=== PATIENT | male | born 1980 | race Caucasian/White ===

== ENCOUNTER 2018-12-28 14:55 | Inpatient (IN) | payer MEDICAID ==
[~2018-12-28] VITALS: Ht 165.1 cm; Wt 77.1 kg
[2018-12-28 15:15] VITALS: Ht 165.1 cm; Wt 77.1 kg
[2018-12-28 15:48] LABS: BASOPHIL % 0.3 % (0-2); PLATELET COUNT 178 x10^3mcL (130-400); RED CELL DISTRIBUTION WIDTH 13.4 % (11.5-14.5)
[2018-12-28 16:03] LABS: CALCIUM 7.9 mg/dL (8.5-10.1); CARBON DIOXIDE 24.6 mmol/L (21-32); CHLORIDE SERUM 104 mmol/L (98-107); CREATININE SERUM 1.3 mg/dL (0.7-1.3); GFR1 > 60 mL/min; POTASSIUM SERUM 3.9 mmol/L (3.5-5.1); SODIUM SERUM 140 mmol/L (136-145)
[2018-12-28 16:08] LABS: ALBUMIN 3.5 g/dL (3.4-5.0); ALKALINE PHOSPHATASE 99 U/L (46-116); ALT/SGPT 58 U/L (16-63); AST/SGOT 67 U/L (15-37); BILIRUBIN TOTAL 0.3 mg/dL (0.20-1.00); TOTAL PROTEIN, SERUM 7.3 g/dL (6.4-8.2)
[2018-12-28 16:20] LABS: GLUCOSE SERUM 197 mg/dL (74-106)
[2018-12-28 16:25] LABS: AMYLASE 207 U/L (25-115)
[2018-12-28 17:00] LABS: LIPASE 2216 IU/L (73-393)
[2018-12-28 18:38] LABS: CHOLESTEROL/HDL RATIO 13.8
[2018-12-28 20:03] VITALS: BP 138/85
[2018-12-29 05:22] VITALS: BP 104/64
[2018-12-29 06:29] LABS: BASOPHIL % 0.2 % (0-2); PLATELET COUNT 176 x10^3mcL (130-400); RED CELL DISTRIBUTION WIDTH 13.3 % (11.5-14.5)
[2018-12-29 06:38] LABS: CARBON DIOXIDE 28.2 mmol/L (21-32); CHLORIDE SERUM 109 mmol/L (98-107); CREATININE SERUM 0.7 mg/dL (0.7-1.3); GFR1 > 60 mL/min; GLUCOSE SERUM 113 mg/dL (74-106); PHOSPHOROUS 3.5 mg/dL (2.5-4.9); POTASSIUM SERUM 4.7 mmol/L (3.5-5.1); SODIUM SERUM 144 mmol/L (136-145)
[2018-12-29 09:10] VITALS: BP 109/68
[2018-12-29] MEDS ORDERED: LOP600 PO (13:04)
[2018-12-29] MEDS ORDERED: GEMFIBROZIL600 MG PO (13:45)
[2018-12-29] MEDS ORDERED: LIPI20 PO (13:47)
== END 2018-12-29 15:00 | disposition home or self-care (01) | DRG 423 ==
LOC: ED 14:55 → MU 18:01
PROVIDERS: Emergency Medicine; ADMIT General Practice
DX: E78.1 Pure hyperglyceridemia (principal); K85.80 Other acute pancreatitis without necrosis or infection; E87.8 Other disorders of electrolyte and fluid balance, not elsewhere classified; E83.51 Hypocalcemia; E78.5 Hyperlipidemia, unspecified; D64.9 Anemia, unspecified; Z68.29 Body mass index [BMI] 29.0-29.9, adult; K76.0 Fatty (change of) liver, not elsewhere classified
CPT/HCPCS: 82962; G0378; G0480; J1885; J7030; Q0092